=== PATIENT | female | born 1970 ===

== ENCOUNTER → 2019-04-27 | Outpatient (CLI) | payer SELFPAY ==
--- NOTE | 2019-04-27 15:35 | EMB_PTH ---
PATIENT: MAGI SILVEIRA LOC: [facility] U#:[id number] AGE/SX: 48/F ROOM: RE04/27/[address]: Dr. Timothy Tabor MD : [id number] BED: DIS: 04/27/2019 SPEC #: [id number] RECD: 04/27/19 17:25 STATUS: RENEE RAMIREZ #: [id number] SHERRY: 04/27/19 15:[address]: Timothy Tabor DEPT: SURGICAL PATHOLOGY RECD BY: Loyd Lazaro Tissues: Endometrium, NOS Procedures: Surgery Specimen Level IV HEADER OPERATION: Endometrial biopsy PRE-OP DIAGNOSIS: Irregular menses TISSUE SUBMITTED: Endometrium MICROSCOPIC DIAGNOSIS Endometrial biopsy: Disordered proliferative endometrium with glandular and stromal breakdown and tubal metaplasia. Features suggestive of endometrial polyp. CE:pawel 04/29/19 MICROSCOPIC DESCRIPTION Slides are reviewed. GROSS DESCRIPTION Received in fixative is one container labeled with the patient's name and designated EM biopsy. The specimen consists of multiple fragments of hemorrhagic soft tissue that in aggregate measure 2.5 x 2.5 x 0.1 cm. The specimen is totally submitted in one cassette. / SJ:pawel 04/28/19 TC:5 CPT: 67243
[2019-04-30 15:08] LABS: HPV Reflexed? NOT INDICATED
== END | disposition home or self-care (01) ==
PROVIDERS: Visit Provider Obstetrics & Gynecology
DX: N92.6 Irregular menstruation, unspecified (principal); Z12.4 Encounter for screening for malignant neoplasm of cervix
CPT/HCPCS: 87624; 88175; 88305; G0145